=== PATIENT | female | born 1960 | race Caucasian/White ===

== ENCOUNTER 2020-04-16 10:49 | Outpatient (REF) | payer OTHER, SELFPAY ==
[2020-04-16 11:29] LABS: MANUAL DIFF FLAG NO
[2020-04-16 11:38] LABS: Basophils Absolute Auto 0.1 X10*3/uL (0.0-0.2); Basophils Percent Auto 0.8 % (0-2); Eosinophils Absolute Auto 0.3 X10*3/uL (0.0-0.4); Eosinophils Percent Auto 4.2 % (0-4); Hematocrit 38.1 % (37-47); Hemoglobin 12.6 g/dl (12.0-16.0); Imm Gran Abs Auto 0.01 X10*3/uL (0.00-0.03); Imm Gran Pct Auto 0.2 % (0.0-0.4); Lymphocytes Absolute Auto 1.6 X10*3/uL (1.2-4.9); Lymphocytes Percent Auto 26.2 % (20-40); Mean Corpuscular HGB Conc 33.1 g/dl (31.0-35.0); Mean Corpuscular Hemoglobin 33.6 pg (27.0-33.0); Mean Corpuscular Volume 101.6 fL (80-98); Monocytes Absolute Auto 0.4 X10*3/uL (0.1-1.2); Monocytes Percent Auto 7.3 % (2-11); Neutrophils Absolute Auto 3.6 X10*3/uL (2.0-8.3); Neutrophils Percent Auto 61.3 % (45-73); Platelet Count 355 X10*3/uL (160-400); Red Blood Count 3.75 X10*6/uL (4.20-5.50); Red Cell Distribution Width 13.2 % (11.0-16.0); White Blood Count 5.9 X10*3/uL (4.8-10.8)
[2020-04-16 12:02] LABS: Alanine Aminotransferase 111 U/L (0-31); Albumin Level 4.5 g/dL (3.5-5.0); Alkaline Phosphatase 78 U/L (39-117); Anion Gap 13 (12-20); Aspartate Amino Transferase 113 U/L (5-31); Bilirubin Total 0.7 mg/dL (0.0-1.0); Blood Urea Nitrogen 11 mg/dL (9-16); C Reactive Protein 0.35 mg/dL (< or = 0.50); Calcium 8.9 mg/dL (8.4-10.2); Carbon Dioxide 28 mmol/L (22-29); Chloride 102 mmol/L (96-108); Estimated Glomerular Filt Rate > 60; Glucose Random 98 mg/dL (60-115); Potassium 4.8 mmol/l (3.3-5.1); Sodium 138 mmol/L (135-145); Total Protein 7.4 g/dL (6.5-8.0)
[2020-04-16 12:14] LABS: Free T4 (Free Thyroxine) 0.88 ng/dL (0.71-1.85); Thyroid Stimulating Hormone 1.99 uIU/mL (0.32-4.0)
== END 2020-04-16 10:50 | disposition home or self-care (01) ==
LOC: HO.LAB 10:49
PROVIDERS: Absent Provider Student in an Organized Health Care Education/Training Program; PCP Internal Medicine; Visit Provider Internal Medicine Endocrinology, Diabetes & Metabolism
DX: E06.3 Autoimmune thyroiditis (principal); R74.01 Elevation of levels of liver transaminase levels; M06.09 Rheumatoid arthritis without rheumatoid factor, multiple sites; Z79.899 Other long term (current) drug therapy
CPT/HCPCS: 36415; 80053; 84439; 84443; 85025; 86140

== ENCOUNTER → 2020-04-17 09:49 | Outpatient (BNVA) | payer OTHER, SELFPAY | PROVIDERS: PCP Internal Medicine; Referring Provider Internal Medicine; Visit Provider Internal Medicine Endocrinology, Diabetes & Metabolism | DX: Z76.89 Persons encountering health services in other specified circumstances (principal) ==

== ENCOUNTER 2020-05-17 12:12 | Outpatient (REF) | payer OTHER, SELFPAY ==
[2020-05-17 13:18] LABS: Alanine Aminotransferase 37 U/L (0-31); Albumin Level 4.3 g/dL (3.5-5.0); Alkaline Phosphatase 71 U/L (39-117); Anion Gap 14 (12-20); Aspartate Amino Transferase 32 U/L (5-31); Bilirubin Total 0.6 mg/dL (0.0-1.0); Blood Urea Nitrogen 10 mg/dL (9-16); Calcium 9.3 mg/dL (8.4-10.2); Carbon Dioxide 27 mmol/L (22-29); Chloride 102 mmol/L (96-108); Estimated Glomerular Filt Rate > 60; Glucose Random 99 mg/dL (60-115); Potassium 4.5 mmol/l (3.3-5.1); Sodium 138 mmol/L (135-145); Total Protein 7.4 g/dL (6.5-8.0)
== END 2020-05-17 12:13 | disposition home or self-care (01) ==
LOC: HO.LAB 12:12
PROVIDERS: PCP Internal Medicine; Visit Provider Student in an Organized Health Care Education/Training Program
DX: R74.01 Elevation of levels of liver transaminase levels (principal)
CPT/HCPCS: 80053

== ENCOUNTER 2020-07-03 09:54 | Outpatient (REF) | payer OTHER, SELFPAY ==
[2020-07-03 11:26] LABS: MANUAL DIFF FLAG NO
[2020-07-03 11:32] LABS: Basophils Percent Auto 0.6 % (0-2); Eosinophils Absolute Auto 0.2 X10*3/uL (0.0-0.4); Hematocrit 39.6 % (37-47); Hemoglobin 13.3 g/dl (12.0-16.0); Imm Gran Abs Auto 0.01 X10*3/uL (0.00-0.03); Imm Gran Pct Auto 0.2 % (0.0-0.4); Lymphocytes Absolute Auto 1.1 X10*3/uL (1.2-4.9); Lymphocytes Percent Auto 22.4 % (20-40); Mean Corpuscular HGB Conc 33.6 g/dl (31.0-35.0); Mean Corpuscular Hemoglobin 32.9 pg (27.0-33.0); Mean Platelet Volume 10.4 fL (9.4-12.3); Monocytes Absolute Auto 0.5 X10*3/uL (0.1-1.2); Monocytes Percent Auto 9.3 % (2-11); Neutrophils Absolute Auto 3.3 X10*3/uL (2.0-8.3); Neutrophils Percent Auto 64.5 % (45-73); Platelet Count 341 X10*3/uL (160-400); Red Blood Count 4.04 X10*6/uL (4.20-5.50); Red Cell Distribution Width 12.5 % (11.0-16.0); White Blood Count 5.1 X10*3/uL (4.8-10.8)
[2020-07-03 12:13] LABS: Alanine Aminotransferase 17 U/L (0-31); Albumin Level 4.5 g/dL (3.5-5.0); Alkaline Phosphatase 73 U/L (39-117); Anion Gap 13 (12-20); Aspartate Amino Transferase 20 U/L (5-31); Bilirubin Total 0.9 mg/dL (0.0-1.0); Blood Urea Nitrogen 13 mg/dL (9-16); C Reactive Protein 0.36 mg/dL (< or = 0.50); Calcium 9.2 mg/dL (8.4-10.2); Carbon Dioxide 29 mmol/L (22-29); Chloride 102 mmol/L (96-108); Estimated Glomerular Filt Rate > 60; Glucose Random 98 mg/dL (60-115); Potassium 4.5 mmol/L (3.3-5.1); Sodium 139 mmol/L (135-145); Total Protein 7.5 g/dL (6.5-8.0)
[2020-07-03 12:28] LABS: Erythrocyte Sedimentation Rate 14 MM/HR (0-20)
[2020-07-04 09:01] LABS: HBS Num1 1.04 mIU/mL (0-7.99); HBc Num1 0.12 S/CO (0.00-0.79); HBsAGNum1 0.19 S/CO (0.00-0.99); Hepatitis B Core Antibody Nonreactive (Nonreactive); Hepatitis B Surface Antigen Negative (Negative); ~Hepatitis B Surface Antibody NONREACTIVE (Nonreactive)
[2020-07-04 09:15] LABS: ~HepC Num1 0.15 S/CO (0.00-0.79); ~Hepatitis C Antibody Nonreactive (Nonreactive)
[2020-07-05 08:17] LABS: Hepatitis A Antibody IgM 0.16 Index (0-0.79); ~Hepatitis A Antibody IgM Nonreactive (Nonreactive)
[2020-07-05 19:32] LABS: TS Negative Control Passed; TS Panel A 0; TS Panel B 0; TS Positive Control Passed; TSpotTB Negative (SeeBelow)
== END 2020-07-03 09:55 | disposition home or self-care (01) ==
LOC: HO.LAB 09:54
PROVIDERS: PCP Internal Medicine; Visit Provider Student in an Organized Health Care Education/Training Program
DX: M05.79 Rheumatoid arthritis with rheumatoid factor of multiple sites without organ or systems involvement (principal); Z79.899 Other long term (current) drug therapy
CPT/HCPCS: 36415; 80053; 85025; 85652; 86140; 86481; 86704; 86706; 86709; 86803; 87340

== ENCOUNTER 2020-07-10 07:50 | Outpatient (REF) | payer OTHER, SELFPAY ==
--- NOTE | ~2020-07-10 | US_ITS ---
EXAMINATION: US ABDOMEN COMPLETE CLINICAL INFORMATION: Elevated liver transaminase. COMPARISON: None TECHNIQUE: Real-time imaging of the abdominal viscera. FINDINGS: PANCREAS: Normal. ABDOMINAL AORTA: The proximal, mid, and distal segments are normal in caliber. INFERIOR VENA CAVA: Visualized portions are normal. LIVER: Liver echotexture is increased.. The liver is normal in size. The liver contour is normal. No focal hepatic lesion. There is no intrahepatic biliary duct dilatation seen. GALLBLADDER: The gallbladder is physiologically distended. Multiple mobile gallstones are present. No evidence of gallbladder wall thickening or pericholecystic fluid. COMMON BILE DUCT: Normal in caliber measuring 0.39 cm in diameter. RIGHT KIDNEY: Normal. No hydronephrosis. No renal calculi or focal parenchymal lesions. The kidney measures 10.9 cm in maximum dimension. LEFT KIDNEY: Normal. No hydronephrosis. No renal calculi or focal parenchymal lesions. The kidney measures 10.0 cm in maximum dimension. SPLEEN: Normal. The spleen measures 9.1 cm in maximum dimension. FREE FLUID: None. US/US abdomen complete IMPRESSION: Echogenic liver. Differential would include fatty infiltration and hepatocellular disease. Gallstones.
== END 2020-07-10 07:51 | disposition home or self-care (01) ==
LOC: HO.US 07:50
PROVIDERS: Visit Provider Student in an Organized Health Care Education/Training Program
DX: R74.01 Elevation of levels of liver transaminase levels (principal)
CPT/HCPCS: 76700

== ENCOUNTER → 2020-08-01 08:46 | Outpatient (BNVA) | payer OTHER, SELFPAY | PROVIDERS: PCP Internal Medicine; Visit Provider Nurse Practitioner ==

== ENCOUNTER → 2020-08-20 15:27 | Outpatient (BNVA) | payer OTHER, SELFPAY | PROVIDERS: PCP Internal Medicine; Visit Provider Nurse Practitioner ==

== ENCOUNTER 2020-10-16 11:26 | Outpatient (REF) | payer OTHER, SELFPAY ==
[2020-10-16 12:41] LABS: Gamma Glutamyl Transpeptidase 25 U/L (7-33)
[2020-10-16 13:15] LABS: Monotest Negative (Negative)
[2020-10-17 04:20] LABS: HIV AB/AG Nonreactive (Nonreactive); HIV Num 1 0.11 S/CO (0.00-0.99)
[2020-10-17 11:32] LABS: Alpha Fetoprotein 4.8 ng/mL
[2020-10-17 15:37] LABS: Mitochondrial Antibodies NEGATIVE (NEGATIVE)
[2020-10-19 11:36] LABS: Ceruloplasmin 37 mg/dL (18-53)
[2020-10-20 09:11] LABS: Smooth Muscle Antibody 23 U (<20)
== END 2020-10-16 11:27 | disposition home or self-care (01) ==
LOC: HO.LAB 11:26
PROVIDERS: PCP Internal Medicine; Visit Provider Nurse Practitioner
DX: R94.5 Abnormal results of liver function studies (principal)
CPT/HCPCS: 36415; 82105; 82390; 82977; 86255; 86256; 86308; 87389

== ENCOUNTER → 2020-10-18 13:55 | Outpatient (BNVA) | payer OTHER, SELFPAY | PROVIDERS: Visit Provider Nurse Practitioner ==

== ENCOUNTER 2020-11-26 14:06 | Outpatient (REF) | payer OTHER, SELFPAY ==
[2020-11-26 14:38] LABS: MANUAL DIFF FLAG NO
[2020-11-26 14:41] LABS: Basophils Percent Auto 0.5 % (0-2); Eosinophils Absolute Auto 0.2 X10*3/uL (0.0-0.4); Eosinophils Percent Auto 3.2 % (0-4); Hematocrit 37.4 % (37-47); Hemoglobin 12.1 g/dl (12.0-16.0); Imm Gran Abs Auto 0.02 X10*3/uL (0.00-0.03); Imm Gran Pct Auto 0.3 % (0.0-0.4); Lymphocytes Absolute Auto 1.9 X10*3/uL (1.2-4.9); Lymphocytes Percent Auto 28.4 % (20-40); Mean Corpuscular HGB Conc 32.4 g/dl (31.0-35.0); Mean Corpuscular Hemoglobin 32.9 pg (27.0-33.0); Mean Corpuscular Volume 101.6 fL (80-98); Mean Platelet Volume 10.1 fL (9.4-12.3); Monocytes Absolute Auto 0.6 X10*3/uL (0.1-1.2); Neutrophils Absolute Auto 3.9 X10*3/uL (2.0-8.3); Neutrophils Percent Auto 58.6 % (45-73); Platelet Count 335 X10*3/uL (160-400); Red Blood Count 3.68 X10*6/uL (4.20-5.50); Red Cell Distribution Width 14.6 % (11.0-16.0); White Blood Count 6.6 X10*3/uL (4.8-10.8)
[2020-11-26 15:14] LABS: Alanine Aminotransferase 46 U/L (0-31); Albumin Level 4.3 g/dL (3.5-5.0); Alkaline Phosphatase 75 U/L (39-117); Anion Gap 13 (12-20); Aspartate Amino Transferase 45 U/L (5-31); Bilirubin Total 0.5 mg/dL (0.0-1.0); Blood Urea Nitrogen 12 mg/dL (9-16); Calcium 9.1 mg/dL (8.4-10.2); Carbon Dioxide 27 mmol/L (22-29); Chloride 103 mmol/L (96-108); Estimated Glomerular Filt Rate > 60; Glucose Random 93 mg/dL (60-115); Potassium 4.3 mmol/L (3.3-5.1); Sodium 139 mmol/L (135-145)
[2020-11-26 15:36] LABS: Free T4 (Free Thyroxine) 0.95 ng/dL (0.71-1.85); Thyroid Stimulating Hormone 1.52 uIU/mL (0.32-4.0)
== END 2020-11-26 14:07 | disposition home or self-care (01) ==
LOC: HO.LAB 14:06
PROVIDERS: Internal Medicine Endocrinology, Diabetes & Metabolism; PCP Internal Medicine; Visit Provider Student in an Organized Health Care Education/Training Program
DX: M06.09 Rheumatoid arthritis without rheumatoid factor, multiple sites (principal); E06.3 Autoimmune thyroiditis
CPT/HCPCS: 36415; 80053; 84439; 84443; 85025; 86140

== ENCOUNTER → 2020-11-28 15:16 | Outpatient (BNVA) | payer OTHER, SELFPAY | PROVIDERS: PCP Internal Medicine; Visit Provider Student in an Organized Health Care Education/Training Program ==

== ENCOUNTER 2021-03-04 09:53 | Outpatient (REF) | payer OTHER, SELFPAY ==
[2021-03-04 10:08] LABS: MANUAL DIFF FLAG NO
[2021-03-04 10:29] LABS: Basophils Percent Auto 0.6 % (0-2); Eosinophils Absolute Auto 0.3 X10*3/uL (0.0-0.4); Eosinophils Percent Auto 4.9 % (0-4); Hematocrit 39.5 % (37-47); Imm Gran Abs Auto 0.01 X10*3/uL (0.00-0.03); Imm Gran Pct Auto 0.2 % (0.0-0.4); Lymphocytes Absolute Auto 1.1 X10*3/uL (1.2-4.9); Lymphocytes Percent Auto 21.8 % (20-40); Mean Corpuscular HGB Conc 32.9 g/dl (31.0-35.0); Mean Corpuscular Hemoglobin 33.2 pg (27.0-33.0); Mean Platelet Volume 9.9 fL (9.4-12.3); Monocytes Absolute Auto 0.5 X10*3/uL (0.1-1.2); Monocytes Percent Auto 9.8 % (2-11); Neutrophils Absolute Auto 3.2 X10*3/uL (2.0-8.3); Neutrophils Percent Auto 62.7 % (45-73); Platelet Count 363 X10*3/uL (160-400); Red Blood Count 3.91 X10*6/uL (4.20-5.50); Red Cell Distribution Width 13.3 % (11.0-16.0); White Blood Count 5.1 X10*3/uL (4.8-10.8)
[2021-03-04 10:56] LABS: Alanine Aminotransferase 49 U/L (0-31); Albumin Level 4.4 g/dL (3.5-5.0); Alkaline Phosphatase 88 U/L (39-117); Anion Gap 13 (12-20); Aspartate Amino Transferase 45 U/L (5-31); Bilirubin Total 0.7 mg/dL (0.0-1.0); Blood Urea Nitrogen 8 mg/dL (9-16); C Reactive Protein 0.32 mg/dL (< or = 0.50); Calcium 9.4 mg/dL (8.4-10.2); Carbon Dioxide 29 mmol/L (22-29); Chloride 101 mmol/L (96-108); Estimated Glomerular Filt Rate > 60; Glucose Random 102 mg/dL (60-115); Potassium 4.6 mmol/L (3.3-5.1); Sodium 138 mmol/L (135-145); Total Protein 7.5 g/dL (6.5-8.0)
[2021-03-04 11:08] LABS: Erythrocyte Sedimentation Rate 13 MM/HR (0-20)
== END 2021-03-04 09:54 | disposition home or self-care (01) ==
LOC: HO.LAB 09:53
PROVIDERS: PCP Internal Medicine; Visit Provider Nurse Practitioner Family
DX: M06.09 Rheumatoid arthritis without rheumatoid factor, multiple sites (principal)
CPT/HCPCS: 36415; 80053; 85025; 85652; 86140

== ENCOUNTER → 2021-03-07 14:13 | Outpatient (BNVA) | payer OTHER, SELFPAY | PROVIDERS: PCP Internal Medicine; Visit Provider Nurse Practitioner Family ==

== ENCOUNTER 2021-07-03 11:08 | Outpatient (REF) | payer OTHER, SELFPAY ==
[2021-07-03 11:25] LABS: MANUAL DIFF FLAG NO
[2021-07-03 11:42] LABS: Eosinophils Absolute Auto 0.2 X10*3/uL (0.0-0.4); Eosinophils Percent Auto 5.2 % (0-4); Hematocrit 38.1 % (37.0-47.0); Hemoglobin 12.6 g/dl (12.0-16.0); Imm Gran Abs Auto 0.01 X10*3/uL (0.00-0.03); Imm Gran Pct Auto 0.3 % (0.0-0.4); Lymphocytes Absolute Auto 1.6 X10*3/uL (1.2-4.9); Lymphocytes Percent Auto 40.6 % (20-40); Mean Corpuscular HGB Conc 33.1 g/dl (31.0-35.0); Mean Corpuscular Hemoglobin 33.7 pg (27.0-33.0); Mean Corpuscular Volume 101.9 fL (80.0-98.0); Mean Platelet Volume 9.6 fL (9.4-12.3); Monocytes Absolute Auto 0.4 X10*3/uL (0.1-1.2); Monocytes Percent Auto 10.1 % (2-11); Neutrophils Absolute Auto 1.7 x10*3/uL (2.0-8.3); Neutrophils Percent Auto 42.8 % (45-73); Platelet Count 354 X10*3/uL (160-400); Red Blood Count 3.74 X10*6/uL (4.20-5.50); Red Cell Distribution Width 12.9 % (11.0-16.0); White Blood Count 3.9 X10*3/uL (4.8-10.8)
[2021-07-03 12:09] LABS: Alanine Aminotransferase 40 U/L (0-31); Albumin Level 4.3 g/dL (3.5-5.0); Alkaline Phosphatase 78 U/L (39-117); Anion Gap 16 (12-20); Aspartate Amino Transferase 36 U/L (5-31); Bilirubin Total 0.8 mg/dL (0.0-1.0); Blood Urea Nitrogen 9 mg/dL (9-16); C Reactive Protein 0.26 mg/dL (< or = 0.50); Calcium 9.4 mg/dL (8.4-10.2); Carbon Dioxide 27 mmol/L (22-29); Chloride 106 mmol/L (96-108); Estimated Glomerular Filt Rate > 60; Glucose Random 87 mg/dL (60-115); Potassium 4.7 mmol/L (3.3-5.1); Sodium 144 mmol/L (135-145); Total Protein 7.4 g/dL (6.5-8.0)
[2021-07-03 12:19] LABS: Erythrocyte Sedimentation Rate 14 MM/HR (0-20)
[2021-07-03 12:25] LABS: Free T4 (Free Thyroxine) 0.87 ng/dL (0.71-1.85)
[2021-07-03 12:32] LABS: Thyroid Stimulating Hormone 1.65 uIU/mL (0.32-4.0)
== END 2021-07-03 11:09 | disposition home or self-care (01) ==
LOC: HO.LAB 11:08
PROVIDERS: Internal Medicine Endocrinology, Diabetes & Metabolism; PCP Internal Medicine; Visit Provider Nurse Practitioner Family
DX: M06.09 Rheumatoid arthritis without rheumatoid factor, multiple sites (principal); E06.3 Autoimmune thyroiditis
CPT/HCPCS: 36415; 80053; 84439; 84443; 85025; 85652; 86140

== ENCOUNTER → 2021-07-08 09:52 | Outpatient (BNVA) | payer OTHER, SELFPAY | PROVIDERS: PCP Internal Medicine; Visit Provider Nurse Practitioner Family ==

== ENCOUNTER 2021-10-30 10:38 | Outpatient (REF) | payer OTHER, SELFPAY ==
--- NOTE | ~2021-10-30 | XR_ITS ---
EXAMINATION: XR CHEST CLINICAL INFORMATION: Cough COMPARISON: None TECHNIQUE: 2 views of the chest were obtained. FINDINGS: No focal consolidation. No pneumothorax. Trachea is midline. Cardiomediastinal silhouette is not enlarged. No large pleural effusion. Degenerative changes of the thoracolumbar spine. Soft tissues are unremarkable. XR/XR chest 2V IMPRESSION: No acute cardiopulmonary process.
[2021-10-30 10:47] LABS: MANUAL DIFF FLAG NO
[2021-10-30 11:25] LABS: Basophils Percent Auto 0.7 % (0-2); Eosinophils Absolute Auto 0.2 X10*3/uL (0.0-0.4); Eosinophils Percent Auto 3.6 % (0-4); Hematocrit 39.4 % (37.0-47.0); Imm Gran Abs Auto 0.02 X10*3/uL (0.00-0.03); Imm Gran Pct Auto 0.4 % (0.0-0.4); Lymphocytes Absolute Auto 1.3 X10*3/uL (1.2-4.9); Lymphocytes Percent Auto 23.4 % (20-40); Mean Corpuscular Hemoglobin 33.7 pg (27.0-33.0); Mean Corpuscular Volume 102.1 fL (80.0-98.0); Mean Platelet Volume 10.1 fL (9.4-12.3); Monocytes Absolute Auto 0.4 X10*3/uL (0.1-1.2); Monocytes Percent Auto 7.3 % (2-11); Neutrophils Absolute Auto 3.6 x10*3/uL (2.0-8.3); Neutrophils Percent Auto 64.6 % (45-73); Platelet Count 339 X10*3/uL (160-400); Red Blood Count 3.86 X10*6/uL (4.20-5.50); Red Cell Distribution Width 13.4 % (11.0-16.0); White Blood Count 5.6 X10*3/uL (4.8-10.8)
[2021-10-30 12:02] LABS: Alanine Aminotransferase 49 U/L (0-31); Albumin Level 4.6 g/dL (3.5-5.0); Alkaline Phosphatase 86 U/L (39-117); Anion Gap 15 (12-20); Aspartate Amino Transferase 50 U/L (5-31); Bilirubin Total 1.1 mg/dL (0.0-1.0); Blood Urea Nitrogen 9 mg/dL (9-16); C Reactive Protein 0.59 mg/dL (< or = 0.50); Calcium 9.8 mg/dL (8.4-10.2); Carbon Dioxide 27 mmol/L (22-29); Chloride 100 mmol/L (96-108); Estimated Glomerular Filt Rate > 60; Glucose Random 95 mg/dL (60-115); Potassium 4.4 mmol/L (3.3-5.1); Sodium 138 mmol/L (135-145); Total Protein 7.8 g/dL (6.5-8.0)
[2021-10-30 12:32] LABS: Erythrocyte Sedimentation Rate 14 MM/HR (0-20)
== END 2021-10-30 10:39 | disposition home or self-care (01) ==
LOC: HO.XRAY 10:38
PROVIDERS: PCP Internal Medicine; Visit Provider Nurse Practitioner Family
DX: M06.09 Rheumatoid arthritis without rheumatoid factor, multiple sites (principal); R05.9 Cough, unspecified
CPT/HCPCS: 36415; 71046; 80053; 85025; 85652; 86140

== ENCOUNTER 2021-11-05 10:54 | Outpatient (REF) | payer OTHER, SELFPAY ==
--- NOTE | ~2021-11-05 | XR_ITS ---
EXAMINATION: XR BILATERAL HAND XR BILATERAL FOOT CLINICAL INFORMATION: Rheumatoid arthritis. Tingling in right hand and foot. COMPARISON: None TECHNIQUE: 3 views of each hand. 3 views of each foot. FINDINGS: RIGHT HAND: There is loss of PIP and DIP joint space with periarticular spurring the PIP joint 1st and 4th and DIP joints 2nd through 5th digits. The MCP joint space is preserved. The intercarpal and carpometacarpal joint space are preserved as well. There is no visible fracture or dislocation. LEFT HAND: There is mild reduction in the PIP and DIP joint space all digits with moderate periarticular spurring of the DIP joints 4th and 5th digits with minimal soft tissue swelling. There is a small loose body along the dorsal DIP joint 2nd digit. RIGHT FOOT: There is a small calcaneal heel enthesophyte. Ankle mortise and subtalar joints are normal. There is no visible acute fracture, dislocation or subluxation. The soft tissues are normal. LEFT FOOT: There is no visible acute fracture, dislocation or subluxation, no bony erosive changes. The ankle mortise and subtalar joints appear preserved. Mild dorsal distal foot soft tissue swelling. XR/XR foot RT 2V IMPRESSION: 1. Unremarkable foot exam. 2. Degenerative osteoarthritic changes PIP and DIP joints both hands. 3. There is no acute fracture or dislocation in either foot or the hands.
--- NOTE | ~2021-11-05 | XR_ITS ---
EXAMINATION: XR BILATERAL HAND XR BILATERAL FOOT CLINICAL INFORMATION: Rheumatoid arthritis. Tingling in right hand and foot. COMPARISON: None TECHNIQUE: 3 views of each hand. 3 views of each foot. FINDINGS: RIGHT HAND: There is loss of PIP and DIP joint space with periarticular spurring the PIP joint 1st and 4th and DIP joints 2nd through 5th digits. The MCP joint space is preserved. The intercarpal and carpometacarpal joint space are preserved as well. There is no visible fracture or dislocation. LEFT HAND: There is mild reduction in the PIP and DIP joint space all digits with moderate periarticular spurring of the DIP joints 4th and 5th digits with minimal soft tissue swelling. There is a small loose body along the dorsal DIP joint 2nd digit. RIGHT FOOT: There is a small calcaneal heel enthesophyte. Ankle mortise and subtalar joints are normal. There is no visible acute fracture, dislocation or subluxation. The soft tissues are normal. LEFT FOOT: There is no visible acute fracture, dislocation or subluxation, no bony erosive changes. The ankle mortise and subtalar joints appear preserved. Mild dorsal distal foot soft tissue swelling. XR/XR foot LT 2V IMPRESSION: 1. Unremarkable foot exam. 2. Degenerative osteoarthritic changes PIP and DIP joints both hands. 3. There is no acute fracture or dislocation in either foot or the hands.
--- NOTE | ~2021-11-05 | XR_ITS ---
EXAMINATION: XR BILATERAL HAND XR BILATERAL FOOT CLINICAL INFORMATION: Rheumatoid arthritis. Tingling in right hand and foot. COMPARISON: None TECHNIQUE: 3 views of each hand. 3 views of each foot. FINDINGS: RIGHT HAND: There is loss of PIP and DIP joint space with periarticular spurring the PIP joint 1st and 4th and DIP joints 2nd through 5th digits. The MCP joint space is preserved. The intercarpal and carpometacarpal joint space are preserved as well. There is no visible fracture or dislocation. LEFT HAND: There is mild reduction in the PIP and DIP joint space all digits with moderate periarticular spurring of the DIP joints 4th and 5th digits with minimal soft tissue swelling. There is a small loose body along the dorsal DIP joint 2nd digit. RIGHT FOOT: There is a small calcaneal heel enthesophyte. Ankle mortise and subtalar joints are normal. There is no visible acute fracture, dislocation or subluxation. The soft tissues are normal. LEFT FOOT: There is no visible acute fracture, dislocation or subluxation, no bony erosive changes. The ankle mortise and subtalar joints appear preserved. Mild dorsal distal foot soft tissue swelling. XR/XR hand LT min 3V IMPRESSION: 1. Unremarkable foot exam. 2. Degenerative osteoarthritic changes PIP and DIP joints both hands. 3. There is no acute fracture or dislocation in either foot or the hands.
--- NOTE | ~2021-11-05 | XR_ITS ---
EXAMINATION: XR BILATERAL HAND XR BILATERAL FOOT CLINICAL INFORMATION: Rheumatoid arthritis. Tingling in right hand and foot. COMPARISON: None TECHNIQUE: 3 views of each hand. 3 views of each foot. FINDINGS: RIGHT HAND: There is loss of PIP and DIP joint space with periarticular spurring the PIP joint 1st and 4th and DIP joints 2nd through 5th digits. The MCP joint space is preserved. The intercarpal and carpometacarpal joint space are preserved as well. There is no visible fracture or dislocation. LEFT HAND: There is mild reduction in the PIP and DIP joint space all digits with moderate periarticular spurring of the DIP joints 4th and 5th digits with minimal soft tissue swelling. There is a small loose body along the dorsal DIP joint 2nd digit. RIGHT FOOT: There is a small calcaneal heel enthesophyte. Ankle mortise and subtalar joints are normal. There is no visible acute fracture, dislocation or subluxation. The soft tissues are normal. LEFT FOOT: There is no visible acute fracture, dislocation or subluxation, no bony erosive changes. The ankle mortise and subtalar joints appear preserved. Mild dorsal distal foot soft tissue swelling. XR/XR hand RT min 3V IMPRESSION: 1. Unremarkable foot exam. 2. Degenerative osteoarthritic changes PIP and DIP joints both hands. 3. There is no acute fracture or dislocation in either foot or the hands.
== END 2021-11-05 10:55 | disposition home or self-care (01) ==
LOC: HO.XRAY 10:54
PROVIDERS: PCP Internal Medicine; Visit Provider Nurse Practitioner Family
DX: M06.9 Rheumatoid arthritis, unspecified (principal)
CPT/HCPCS: 73130; 73620

== ENCOUNTER 2022-01-21 10:31 | Outpatient (REF) | payer OTHER, SELFPAY ==
[2022-01-21 12:56] LABS: Free T4 (Free Thyroxine) 0.89 ng/dL (0.71-1.85); Thyroid Stimulating Hormone 2.47 uIU/mL (0.32-4.0)
== END 2022-01-21 10:32 | disposition home or self-care (01) ==
LOC: HO.LAB 10:31
PROVIDERS: PCP Internal Medicine; Visit Provider Internal Medicine Endocrinology, Diabetes & Metabolism
DX: E06.3 Autoimmune thyroiditis (principal)
CPT/HCPCS: 36415; 84439; 84443

== ENCOUNTER → 2022-05-29 10:57 | Outpatient (BNVA) | payer OTHER, SELFPAY | PROVIDERS: PCP Internal Medicine; Visit Provider Internal Medicine Endocrinology, Diabetes & Metabolism | DX: E06.3 Autoimmune thyroiditis (principal) ==

== ENCOUNTER 2024-05-10 09:04 | Outpatient (AMB) | payer OTHER, SELFPAY ==
--- NOTE | 2024-05-10 09:15 | MHC.OFFVIS ---
Vital Signs 05/10/24 09:19 Height 5 ft 2 in Weight 150 lb 12.739 oz BMI 27.6 BP 120/82 Blood Pressure Location Rt brachial Position Sitting Respiration 16 Pulse 82 Pulse Source Pulse Oximeter Pulse Oximetry (%) 97 Oxygen Delivery Method Room Air Intake Visit Reasons: RA Intake Note: Patient presents for RA. Allergies dicloxacillin Allergy (Intermediate, Verified 05/10/24 09:18) rash Medication List - Last Reconciled 05/10/24 by Kendall Flores MD alendronate 70 mg PO QWEEK atorvastatin 40 mg PO DAILY [cock up splint wear on the right wrist at night ] fexofenadine (Lacy Allergy) 180 mg PO DAILY PRN hydrochlorothiazide 12.5 mg PO QAM HPI Comments Details: This is a 63-year-old female who was diagnosed with seropositive RA back in 2016, presents for follow-up. She was last seen here in 2021. She has been off all DMARDs for about 2 years. Initially patient started with significant bilateral knee pain and stiffness. She could barely walk. She was started on methotrexate with significant improvement. Methotrexate was discontinued due to transaminitis. She has been off of DMARDs since 2021. Patient stated that she has been feeling great. She denies any joint pain swelling or stiffness. She only has minimal intermittent pain at the base of her thumbs. She denies having any other symptoms at this time. She denies any cough, shortness of breath. She walks regularly, several miles and up hill without shortness of breath. She was able to go up 2 flares for her appointment clinic today without having to stop and catch her breath. She is unaware of any family history of an autoimmune rheumatic disease [facility] Medical History (Updated 05/10/24 @ 09:58 by Kendall Flores MD) terminal carman methotrexate user Osteoporosis Rheumatoid arthritis Franchesca's disease Surgical History Hx of colonoscopy History of appendectomy Hx of breast augmentation Hx of section Family History Father HTN (hypertension) Mother HTN (hypertension) Thyroid condition Paternal Uncle Colon cancer Maternal Aunt Colon cancer Maternal Grandfather Colon cancer Maternal Grandmother Colon cancer Paternal Grandfather Colon cancer Paternal Grandmother Colon cancer Brother Bladder cancer Social History Household Members: Spouse Household Members Other:: Alcohol intake: current Alcohol intake frequency: holidays/special occasions only Patient Tobacco Use Status: Never used Tobacco e-Cigarette/Vaping Use: Never Used Review of Systems Const Denies fever(s) and Denies weight loss Card Denies dyspnea Resp Denies cough and Denies dyspnea Musc Denies arthralgias, Denies joint swelling and Denies stiffness Physical Exam Vital Signs: Last Vital Signs Pulse 82 05/10/24 09:19 Resp 16 05/10/24 09:19 BP 120/82 05/10/24 09:19 Pulse Ox 97 05/10/24 09:19 Oxygen Delivery Method Room Air 05/10/24 09:19 BMI result Body Mass Index 27.6 Const General: cooperative, healthy appearing and comfortable Nutritional Appearance: overweight Orientation/consciousness: patient oriented x3 Limitations: no limitations HEENT Head: Yes normocephalic and Yes atraumatic Mouth: moist mucous membranes Resp Effort & Inspection: normal respiratory effort and able to speak in complete sentences Auscultation: clear to auscultation bilaterally Cardio Rate: regular rate Rhythm: regular rhythm Skin General skin exam: no rashes or lesions noted Neuro General: patient oriented x3 Extrem Other: Minimal tenderness to palpation at the 1st CMC joints bilaterally No active synovitis Normal nailfold capillaroscopy Normal pain-free range of motion of elbows and shoulders Normal pain-free range of motion of knees No knee swelling or warmth or tenderness bilaterally No ankle swelling or tenderness bilaterally Assessment & Plan Assessment & Plan (1) Rheumatoid arthritis: Comment: -ve RF ++CCP dx 2017 MTX started in 2017 effective, DC in 2021 due to transaminitis Off DMARDs since 2021 Code(s): M06.9 - Rheumatoid arthritis, unspecified Category: Medical Qualifiers: Rheumatoid arthritis location: multiple sites Rheumatoid factor presence: without rheumatoid factor Qualified Code(s): M06.09 - Rheumatoid arthritis without rheumatoid factor, multiple sites Plan: This is a 63-year-old female with history of seropositive RA who presents for follow-up. Patient has been off of all DMARDs for more than 2 years without recurrence of inflammatory arthritis. She has no signs suggestive of RA disease activity or extra-articular involvement. Discussed with patient the symptoms and signs that are suggestive of active RA and advised patient to follow-up as needed Plan I spent 15 minutes reviewing patient's chart, evaluating patient, counseling patient and documenting in the chart Coding Level of Care Code Est Pt Level 3 (25854) Diagnoses Rheumatoid arthritis of multiple sites with negative rheumatoid factor M06.09 Rheumatoid arthritis location: multiple sites Rheumatoid factor presence: without rheumatoid factor
[2024-05-10 09:19] VITALS: BP 120/82; PULSE 82; RESP 16; O2SAT 97; BMI 27.6
== END 2024-05-10 10:40 | disposition home or self-care (01) ==
PROVIDERS: PCP Internal Medicine; Visit Provider Student in an Organized Health Care Education/Training Program
DX: M06.09 Rheumatoid arthritis without rheumatoid factor, multiple sites (principal)
CPT/HCPCS: 99213

== ENCOUNTER → 2024-05-10 09:04 | Outpatient (BNVA) | payer OTHER, SELFPAY | PROVIDERS: PCP Internal Medicine; Visit Provider Student in an Organized Health Care Education/Training Program ==